=== PATIENT | female | born 1985 | race Caucasian/White ===

== ENCOUNTER 2016-06-10 20:28 | Emergency (ER) | payer MEDICAID ==
[2013-09-29 09:01] VITALS: BMI 45.7
[~2016-06-10 20:28] MED LIST: ADIPEX-P37.5 M1 PO; LISINOPRIL10 MG PO; PERCOCET 10/3251 TA1 PO
== END 2016-06-10 21:18 | disposition home or self-care (01) ==
LOC: D.ER 20:28
DX: T81.4XXS Infection following a procedure, sequela (principal)

== ENCOUNTER 2016-09-20 17:26 | Emergency (ER) | payer MEDICAID ==
[2013-09-29 09:01] VITALS: BMI 45.7
[2016-09-20 18:19] LABS: BASOPHILS 0.1 % (0-2); EOSINOPHILS 0.3 % (0-7); HEMATOCRIT 40.1 % (36.0-48.0); HEMOGLOBIN 13.1 g/dL (12-16); IMMATURE GRANULOCYTES 0.3 % (0-5); LYMPHOCYTES 12.5 % (15-50); MCH 25.1 pg (26.0-34.0); MCHC 32.7 g/dL (31.0-37.0); MONOCYTES 3.2 % (2-11); NEUTROPHILS 83.6 % (40-80); RBC 5.21 10x6/uL (4.00-5.40); RDW 15.5 % (11.5-14.5); WBC 7.7 10x3/uL (4.8-10.8)
[2016-09-20 18:20] LABS: PLATELET COUNT 160 10x3/uL (130-400)
[2016-09-20 18:26] LABS: APPEARANCE CLEAR (CLEAR); BILIRUBIN NEGATIVE (NEGATIVE); COLOR YELLOW (YELLOW); GLUCOSE NEGATIVE (NEGATIVE); KETONE NEGATIVE (NEGATIVE); LEUKOCYTE ESTERASE TRACE (NEGATIVE); NITRITE NEGATIVE (NEGATIVE); PROTEIN NEGATIVE (NEGATIVE); UROBILINOGEN NORMAL (NORMAL)
[2016-09-20 18:28] LABS: BACTERIA FEW /hpf (NONE SEEN); EPITHELIAL CELLS 0-5 /hpf (0-5); RED CELLS - URINE NONE SEEN /hpf (0-5); WHITE CELLS - URINE 0-5 /hpf (0-5)
[2016-09-20 18:39] LABS: ALBUMIN 3.2 g/dL (3.4-5.0); ALKALINE PHOSPHATASE 118 U/L (46-116); ALT (SGPT) 23 U/L (10-68); BILIRUBIN - TOTAL 0.28 mg/dL (0.2-1.3); CALC OSMOLALITY 273 mosm/kg (275-300); CALCIUM 8.3 mg/dL (8.5-10.1); CARBON DIOXIDE 23.9 mmol/L (21.0-32.0); CHLORIDE - SERUM 102 mmol/L (98-107); CREATININE - SERUM 0.8 mg/dL (0.6-1.3); GLUCOSE 110 mg/dL (74-106); LIPASE 240 U/L (73-393); POTASSIUM - SERUM 3.7 mmol/L (3.5-5.1); PROTEIN - SERUM 7.1 g/dL (6.4-8.2); SODIUM 136 mmol/L (136-145); UREA NITROGEN 15 mg/dL (7-18); eGFR NON AFRICAN AMERICAN 89 mL/min (90-120)
[2016-09-20 18:45] LABS: HCG SERUM NEGATIVE (NEGATIVE)
== END 2016-09-20 20:48 | disposition home or self-care (01) ==
LOC: D.ER 17:26
PROVIDERS: Emergency Medicine
DX: R30.0 Dysuria (principal); R10.9 Unspecified abdominal pain; F17.200 Nicotine dependence, unspecified, uncomplicated